=== PATIENT | male | born 1965 | race Two or more races ===

== ENCOUNTER 2023-10-18 05:10 | Day surgery (SDC) | payer OTHER ==
[2023-10-15 08:59] LABS: HEMATOCRIT 44.5 % (39.0-48.0); HEMOGLOBIN 15.1 g/dL (13-16.00); MEAN CELL VOLUME 86.1 fL (80.0-100.00); MEAN CORPUSCULAR HEMOGLOBIN 29.2 pg (27.00-32.0); MEAN CORPUSCULAR HGB CONC 33.9 g/dl (32.0-36.0); PLATELET COUNT 280 K/uL (150-450); RED BLOOD COUNT 5.17 M/uL (4.00-6.00); RED CELL DISTRIBUTION WIDTH 12.8 % (11.5-14.5)
[2023-10-15 09:10] LABS: PH,URINE 7.5 (5.0-8.0); URINE APPEARANCE Clear; URINE BILIRRUBIN Negative (NEGATIVE); URINE BLOOD Negative; URINE COLOR Yellow; URINE GLUCOSE Negative (NEGATIVE); URINE LEUKOCYTE Negative; URINE NITRATE Negative; URINE PROTEIN Negative (NEGATIVE); URINE UROBILINOGEN 0.2 E.U./dl
[2023-10-15 09:13] LABS: URINE EPITHELIAL CELLS 0.6 uL (0.0-38.8); URINE RBC 1.5 uL (0.0-20.8); URINE WBC 0.9 uL (0.0-23.2)
[2023-10-15 09:14] LABS: URINE BACTERIA 1.2 uL (0.0-1933)
[2023-10-15 09:36] LABS: CALCIUM 9.8 mg/dL (8.5-10.1); CREATININE SERUM 0.87 mg/dL (0.70-1.30); GFR 89.81; POTASSIUM 4.07 mEq/L (3.5-5.1)
[2023-10-15 09:52] LABS: INR 1.01; PARTIAL THROMBOPLASTIN TIME 26.9 SECONDS (22.0-34.0); PROTHROMBIN TIME 10.6 SECONDS (9.0-11.5)
[~2023-10-18 05:10] MED LIST: VERAPAMIL
== END 2023-10-18 15:40 | disposition home or self-care (01) ==
LOC: CIR.AMB 05:10
PROVIDERS: ATTEND Urology
DX: N44.8 Other noninflammatory disorders of the testis (principal); N50.0 Atrophy of testis; Z20.822 Contact with and (suspected) exposure to COVID-19; I10 Essential (primary) hypertension